=== PATIENT | male | born 1990 | race Caucasian/White ===

== ENCOUNTER 2019-10-22 19:02 | Emergency (ER) | payer OTHER, MEDICARE ==
[~2019-10-22] VITALS: Ht 172.7 cm; Wt 95.5 kg
[~2019-10-22 19:02] MED LIST: LITH300C3 PO; LITH600 PO; PALI156D IM; PALI3 PO
[2019-10-22] MEDS ORDERED: SERT50TA12 PO (19:29)
[2019-10-22] MEDS ORDERED: LURA40 PO (19:29)
[2019-10-22] MEDS ORDERED: RISP1 PO (19:29)
[2019-10-22] MEDS ORDERED: ACETAMINOPHEN 325 MG TABLET PO ONE (19:45)
[2019-10-22] MEDS ORDERED: IBUPROFEN 400 MG TABLET PO ONE (19:45)
[2019-10-23 00:49] VITALS: BP 124/70
[2019-10-25] MEDS ORDERED: RISPC375 IM (06:46)
[2019-10-25] MEDS ORDERED: FAMO20 PO (06:46)
[2019-10-25] MEDS ORDERED: OXYC5TAB3 PO (07:59)
== END 2019-10-23 01:39 | disposition home or self-care (01) ==
LOC: EMS 19:02
DX: S82.851A Displaced trimalleolar fracture of right lower leg, initial encounter for closed fracture (principal); F20.9 Schizophrenia, unspecified; W01.0XXA Fall on same level from slipping, tripping and stumbling without subsequent striking against object, initial encounter; Y93.89 Activity, other specified; Y92.89 Other specified places as the place of occurrence of the external cause; Y99.8 Other external cause status
CPT/HCPCS: 29515; 73700

== ENCOUNTER → 2019-10-25 | Day surgery (SDC) | payer MEDICARE, OTHER ==
[~2019-10-25] VITALS: Ht 172.7 cm; Wt 95.5 kg
[~2019-10-25] MED LIST changes: +BUPIVACAINE HCL/PF 0.5% 30 ML VIAL ONE; +BUPIVACAINE LIPOSOME/PF 1.3%-13.3MG/ML SUSPENSION 20 ML VIAL INJ ONE; +CLINDAMYCIN 900 MG/D5% WATER 50 ML IV ONE; +CLINDAMYCIN PHOS 150 MG/ML 4 ML VIAL ONE; +DEXAMETHASONE SOD PHOS 4 MG/ML VIAL IVP ONE; +FAMO20 PO; +FentaNYL CITRATE-PF 100 MCG/2 ML VIAL IVP PRN; +FentaNYL CITRATE-PF 250 MCG/5 ML VIAL IVP ONE; +HYDROmorphone 2 MG/ML SYRINGE IVP PRN; +LIDOCAINE 1% 10 ML VIAL INJ ONE; +LIDOCAINE/PF 2% 5 ML VIAL ONE; -LITH300C3 PO; -LITH600 PO; +LURA40TA2 PO; +MEPERIDINE-PF 25 MG/ML VIAL IVP PRN; +METOCLOPRAMIDE HCL 5 MG/ML 2 ML VIAL IVP ONE; +MIDAZOLAM HCL 2 MG/2 ML VIAL IVP ONE; +NEOSTIGMINE METHYLSULFATE 1 MG/ML 10 ML VIAL IVP ONE; +ONDANSETRON HCL 4 MG/2 ML VIAL IVP ONE; +OXYC5TAB3 PO; +OXYGEN THERAPY IH SCH; -PALI156D IM; -PALI3 PO; +PROPOFOL 1% 20 ML VIAL IVP ONE; +RINGERS SOLUTION,LACTATED 1,000 ML IV ONE; +RISP1 PO; +RISPC375 IM; +ROCURONIUM BROMIDE 10 MG/ML 5 ML VIAL IVP ONE; +SERT50TA12 PO
[2019-10-25 07:12] LABS: BASOPHILS % (AUTO) 0.7 % (0.0-2.0); EOSINOPHILS % (AUTO) 2.6 % (1.0-6.0); HEMATOCRIT 41.8 % (41-53); HEMOGLOBIN 14.7 g/dL (13.5-17.5); LYMPHOCYTES # (AUTO) 2.2 K/uL (1.0-4.8); LYMPHOCYTES % (AUTO) 22.6 % (22.0-44.0); MEAN CORPUSCULAR HEMOGLOBIN 29.7 pg (26.0-34.0); MEAN CORPUSCULAR VOLUME 85 fL (80-100); MONOCYTES # (AUTO) 0.8 K/uL (0.1-1.0); MONOCYTES % (AUTO) 7.9 % (2.0-9.0); NEUTROPHILS # (AUTO) 6.4 K/uL (1.8-7.7); NEUTROPHILS % (AUTO) 66.2 % (40.0-70.0); PLATELET COUNT (AUTO) 289 K/uL (150-450); RED BLOOD CELL COUNT(AUTO) 4.93 MIL/uL (4.50-5.90); RED CELL DISTRIBUTION WIDTH 13.5 % (11.5-14.5)
[2019-10-25 07:23] LABS: ANION GAP 10 mmol/L (8-16); CALCIUM, TOTAL 8.9 mg/dL (8.8-10.5); CARBON DIOXIDE 26 mmol/L (22-29); CHLORIDE 106 mmol/L (98-107); CREATININE 0.71 mg/dL (0.60-1.30); GLOMERULAR FILTR. RATE CALC > 60 mL/min (>60); GLUCOSE,RANDOM 103 mg/dL (70-110); POTASSIUM 3.9 mmol/L (3.5-5.1); SODIUM SERUM 142 mmol/L (136-145); UREA NITROGEN, BLOOD 13 mg/dL (7-18)
[2019-10-25 07:28] LABS: ALANINE AMINOTRANSFERASE 38 U/L (12-78); ALBUMIN 3.7 g/dL (3.4-5.0); ALKALINE PHOSPHATASE 102 U/L (46-116); ASPARTATE AMINOTRANSFERASE 21 U/L (15-37); BILIRUBIN,TOTAL 0.3 mg/dL (0.1-1.0); TOTAL PROTEIN, SERUM 7.3 g/dL (6.4-8.2)
== END | disposition home or self-care (01) ==
LOC: SURGERY 06:17
PROVIDERS: ATTEND Podiatrist Foot & Ankle Surgery
DX: S82.851A Displaced trimalleolar fracture of right lower leg, initial encounter for closed fracture (principal); S93.04XA Dislocation of right ankle joint, initial encounter; S93.491A Sprain of other ligament of right ankle, initial encounter; F20.9 Schizophrenia, unspecified; F17.210 Nicotine dependence, cigarettes, uncomplicated; Z79.899 Other long term (current) drug therapy; Z87.19 Personal history of other diseases of the digestive system; Z79.01 Long term (current) use of anticoagulants; X58.XXXA Exposure to other specified factors, initial encounter; Y93.89 Activity, other specified; Y92.89 Other specified places as the place of occurrence of the external cause; Y99.8 Other external cause status
CPT/HCPCS: 27698; 27823; 27829; 36415; 71046; 73610; 80053; 85025; 85610; 85730; 93005; C1713; C9290; J1100; J2250; J2405; J2704; J2765; J3010; J3490 ×6; J7120